=== PATIENT | male | born 1965 | race Caucasian/White ===

== ENCOUNTER 2017-07-01 08:40 | Emergency (ER) | payer BC ==
[~2017-07-01] VITALS: Ht 182.9 cm; Wt 122.5 kg
--- OUTSIDE RECORDS SUMMARY | 2017-07-01 08:46 | XMS REPORT | Continuity of Care Document ---
Demographics Preferred Language Unknown Marital Status Unknown Sabianism Affiliation Unknown Race Unknown Ethnic Group Unknown Author Author [facility] Address Unknown Phone Unavailable Allergies Active Description Code Type Severity Reaction Onset Reported/Identified Relationship to Patient Clinical Status Yes Penicillins Drug Allergy N/A N/A 06/05/2010 Medications There is no data. Problems Date Dx Coded Attending Type Code Diagnosis Diagnosed By 06/05/2010 465.9 UPPER RESPIRATORY INFECTION 09/29/2012 786.2 COUGH Procedures There is no data. Results There is no data. Encounters ACCT No. Visit Date/Time Discharge Status Pt. Type Provider Facility Loc./Unit Complaint [id number] 09/29/2012 15:45:00 Document Registration
--- OUTSIDE RECORDS SUMMARY | 2017-07-01 08:46 | XMS REPORT ---
Author Author KAREEN ANSARI Organization [employer] Address Unknown Phone Unavailable Care Team Providers Care Monorail Crane Operator Name Role Phone KAREEN ANSARI CP Unavailable Allergies No Known Allergies Problems Problem Type Condition Code Onset Dates Condition Status Problem Essential hypertension I10 Active Problem Cough 786.2 Active Problem Hypertension, benign I10 Active Medications Medication Code System Code Instructions Start Date End Date Status Dosage Clonidine HCl [facility] [address]-29 0.2 MG Orally twice daily Dec 15, 2015 1 tablet Lisinopril-Hydrochlorothiazide [facility] [address]-24 20-25 MG Orally Once a day Dec 18, 2015 1 tablet Results No Known Results Summary Purpose [employer] Submission
--- OUTSIDE RECORDS SUMMARY | 2017-07-01 08:46 | XMS REPORT ---
Author Author YVONNE WILL Organization [facility] Address [address] [place] [address] Care Team Providers Care Pediatric Clinical Nurse Specialist Name Role Phone TIFFANY WILLISTIN Unavailable PROBLEMS Type Condition ICD9-CM Code LUD47-DJ Code Onset Dates Condition Status SNOMED Code Problem Cough 786.2 Active 66042468 Assessment Bronchitis J40 Nov, Active 26305832 Assessment Hypertensive crisis I10 Nov, Active 642771702 Assessment Essential hypertension I10 Nov, Active 72562653 ALLERGIES Substance Reaction Event Type Date Status Penicillin G Sodium anaphylaxis Drug Allergy Nov, Active SOCIAL HISTORY No smoking Hx information available PLAN OF CARE VITAL SIGNS Height 72 in 2015-12-15 Weight 284.4 lbs 2015-12-15 Heart Rate 92 bpm 2015-12-15 Respiratory Rate 22 2015-12-15 Oximetry 96 % 2015-12-15 BMI 38.57 kg/m2 2015-12-15 Blood pressure systolic 238 mmHg 2015-12-15 Blood pressure diastolic 142 mmHg 2015-12-15 MEDICATIONS Medication Instructions Dosage Frequency Start Date End Date Duration Status Azithromycin 250 MG Orally Once a day 2 tablets on the first day, then 1 tablet daily for 4 days 24h Nov, Nov, 5 day(s) Active Clonidine HCl 0.2 MG Orally twice daily 1 tablet Nov, 30 day( s) Active NyQuil Active Mucinex D 60-600 mg take 1 tablet by Oral route 2 times per day for 10 day( s) PRN Sep, Active RESULTS Name Result Date Reference Range URINE DRUG SCREEN (IN HOUSE) 2015-12-15 Lot # [id number] Exp date Control + COCAINE negative AMPH negative MTD negative THC negative OPIATE Positive BENZO negative PCP negative BAR negative OXY negative MAMP negative TCA negative MDMA negative UA LONG DIP (IN HOUSE) 2015-12-15 Lot # [id number] Exp date 2016-05 Clarity clear Color yellow Odor none GLU negative GAGE negative KET negative SG 1.020 BLO trace-lysed pH 6.0 Protein negative URO 0.2 NIT negative ARIELLA negative Lot # [id number] Exp date 2017-01 CBC 2015-12-15 WBC 7.1 3.4-10.8 RBC 6.15 4.14-5.80 Hemoglobin 18.3 12.6-17.7 Hematocrit 52.5 37.5-51.0 MCV 85 79-97 MCH 29.8 26.6-33.0 MCHC 34.9 31.5-35.7 RDW 13.8 12.3-15.4 Platelets 202 150-379 Neutrophils 57 Lymphs 30 Monocytes 7 Eos 6 Basos 0 Immature Cells Neutrophils (Absolute) 4.0 1.4-7.0 Lymphs (Absolute) 2.2 0.7-3.1 Monocytes(Absolute) 0.5 0.1-0.9 Eos (Absolute) 0.4 0.0-0.4 Baso (Absolute) 0.0 0.0-0.2 Immature Granulocytes 0 Immature Grans (Abs) 0.0 0.0-0.1 NRBC Hematology Comments: CMP 2015-12-15 Glucose, Serum 112 65-99 BUN 11 6-24 Creatinine, Serum 1.19 0.76-1.27 eGFR If NonAfricn Am 72 >59 eGFR If Africn Am 83 >59 BUN/Creatinine Ratio 9 9-20 Sodium, Serum 138 134-144 Potassium, Serum 4.9 3.5-5.2 Chloride, Serum 95 97-108 Carbon Dioxide, Total 24 18-29 Calcium, Serum 9.8 8.7-10.2 Protein, Total, Serum 7.9 6.0-8.5 Albumin, Serum 4.5 3.5-5.5 Globulin, Total 3.4 1.5-4.5 A/G Ratio 1.3 1.1-2.5 Bilirubin, Total 0.6 0.0-1.2 Alkaline Phosphatase, S 69 39-117 AST (SGOT) 35 0-40 ALT (SGPT) 47 0-44 PROCEDURES Procedure Date Ordered Related Diagnosis Body Site Office Visit, Est Pt., Level 3 Dec 15, 2015 ELECTROCARDIOGRAM, TRACING Dec 15, 2015 EKG, TRACING (IN-HOUSE) 2015-12-15 N/A ALBUTEROL UNIT DOSE FORM INHALED 2015-12-15 N/A ALBUTEROL INHAL UNIT DOSE 1 MG Dec 15, 2015 DRUG SCREEN NON TLC DEVICES Dec 15, 2015 VENIPUNCT, ROUTINE* Dec 15, 2015 COMPLETE CBC W/AUTO DIFF WBC Dec 15, 2015 MEASURE BLOOD OXYGEN LEVEL Dec 15, 2015 URINALYSIS, AUTO, W/O SCOPE Dec 15, 2015 COMPREHEN METABOLIC PANEL Dec 15, 2015 IMMUNIZATIONS No Known Immunizations
--- OUTSIDE RECORDS SUMMARY | 2017-07-01 08:46 | XMS REPORT ---
Author NIYAH Chapman Organization [employer] Address Unknown Phone Unavailable Care Team Providers Care Pegger Dobby Looms Name Role Phone NIYAH MALIK CP Unavailable Allergies, Adverse Reactions, Alerts Substance Reaction Event Type Penicillin G Sodium anaphylaxis Drug Allergy Problems Problem Type Condition Code Onset Dates Condition Status Problem Cough 786.2 Active Assessment Essential hypertension I10 Active Problem Essential hypertension I10 Active Medications Medication Code System Code Instructions Start Date End Date Status Dosage Clonidine HCl [facility] [address]-81 0.2 MG Orally twice daily Dec 15, 2015 1 tablet Azithromycin [facility] [address]-68 250 MG Orally Once a day Dec 15, 2015 Dec 20, 2015 2 tablets on the first day, then 1 tablet daily for 4 days Lisinopril-Hydrochlorothiazide [facility] [address]-37 20-12.5 MG Orally Once a day Dec 18, 2015 1 tablet Procedures Procedure Coding System Code Date Office Visit, Est Pt., Level 4 CPT-4 75276 Dec 18, 2015 Vital Signs Date/Time: Dec 18, 2015 Cardiac Monitoring Heart Rate 76 bpm Weight 286.4 lbs Height 72 in BMI 38.84 Index Blood Pressure Diastolic 118 mmHg Blood Pressure Systolic 170 mmHg Results No Known Results Summary Purpose [employer]ClinicalWorks Submission
--- OUTSIDE RECORDS SUMMARY | 2017-07-01 08:46 | XMS REPORT ---
Author Author KAREEN ANSARI Organization [employer] Address Unknown Phone Unavailable Care Team Providers Care Furniture Installer Name Role Phone KAREEN ANSARI CP Unavailable Allergies, Adverse Reactions, Alerts Substance Reaction Event Type Penicillin V Potassium Info Not Available Drug Allergy Problems Problem Type Condition Code Onset Dates Condition Status Problem Cough 786.2 Active Assessment Hypertension, benign I10 Active Problem Hypertension, benign I10 Active Medications Medication Code System Code Instructions Start Date End Date Status Dosage Lisinopril-Hydrochlorothiazide [facility] [address]-19 20-25 MG Orally Once a day Dec 18, 2015 1 tablet Clonidine HCl [facility] [address]-28 0.2 MG Orally twice daily Dec 15, 2015 1 tablet Procedures Procedure Coding System Code Date Office Visit, Est Pt., Level 3 CPT-4 54832 Jan 04, 2016 Vital Signs Date/Time: Jan 04, 2016 Cardiac Monitoring Heart Rate 82 bpm Weight 282.6 lbs Height 72 in BMI 38.32 Index Blood Pressure Diastolic 106 mmHg Blood Pressure Systolic 160 mmHg Results No Known Results Summary Purpose [employer]ClinicalWorks Submission
[2017-07-01] MEDS ORDERED: NS IV 1000 ML 1,000 ML IV ONE (08:51)
[2017-07-01 09:13] LABS: BASOPHILS % (AUTO) 0 % (0-10); EOSINOPHILS # (AUTO) 0.7 10^3/uL (0.0-0.3); EOSINOPHILS % (AUTO) 8 % (0-10); HEMATOCRIT 45 % (40-54); HEMOGLOBIN 16.3 G/DL (13.3-17.7); LYMPHOCYTES % (AUTO) 22 % (12-44); MEAN CORPUSCULAR HEMOGLOBIN 31 PG (25-34); MEAN CORPUSCULAR HGB CONC 37 G/DL (32-36); MEAN CORPUSCULAR VOLUME 83 FL (80-99); MEAN PLATELET VOLUME 9.5 FL (7.4-10.4); MONOCYTES # (AUTO) 0.5 X 10^3 (0.0-1.0); MONOCYTES % (AUTO) 5 % (0-12); NEUTROPHILS # (AUTO) 5.7 X 10^3 (1.8-7.8); NEUTROPHILS % (AUTO) 64 % (42-75); PLATELET COUNT 244 10^3/uL (130-400); RED BLOOD COUNT 5.35 10^6/uL (4.35-5.85); RED CELL DISTRIBUTION WIDTH 13.1 % (10.0-14.5); WHITE BLOOD COUNT 8.9 10^3/uL (4.3-11.0)
[2017-07-01 09:30] LABS: ALANINE AMINOTRANSFERASE 44 U/L (0-55); ALBUMIN 4.3 GM/DL (3.2-4.5); ALKALINE PHOSPHATASE 68 U/L (40-136); BILIRUBIN,TOTAL 0.7 MG/DL (0.1-1.0); BUN/CREATININE RATIO 12; CALCIUM 9.9 MG/DL (8.5-10.1); CARBON DIOXIDE 20 MMOL/L (21-32); CHLORIDE 102 MMOL/L (98-107); CREATININE SERUM 1.05 MG/DL (0.60-1.30); GFR ESTIMATED > 60; GLUCOSE 306 MG/DL (70-105); POTASSIUM 4.4 MMOL/L (3.6-5.0); SODIUM 135 MMOL/L (135-145); TOTAL PROTEIN 7.8 GM/DL (6.4-8.2)
[2017-07-01 09:38] LABS: BILIRUBIN,URINE NEGATIVE (NEGATIVE); CLARITY,URINE CLEAR; COLOR,URINE YELLOW; GLUCOSE, URINE (UA) 4+ (NEGATIVE); KETONES,URINE NEGATIVE (NEGATIVE); LEUKOCYTE ESTERASE ,URINE NEGATIVE (NEGATIVE); NITRITE,URINE NEGATIVE (NEGATIVE); PH,URINE 5 (5-9); PROTEIN,URINE 1+ (NEGATIVE); UROBILINOGEN,URINE NORMAL (NORMAL)
[2017-07-01 09:48] LABS: BACTERIA,URINE NEGATIVE /HPF; GRANULAR CASTS,URINE RARE /LPF; RBC,URINE RARE /HPF; SQUAMOUS EPITHELIAL CELL,UR RARE /HPF
--- NOTE | 2017-07-01 10:04 | ED Abdominal Pain ---
General Chief Complaint: Abdominal/GI Problems Stated Complaint: BACK PAIN RIGHT SIDE PAIN Nursing Triage Note: c/o right lower abd pain x 1.5 weeks. Pain increased to right flank this morning. Denies urinary symptoms/fever/chills. Sepsis Screen: No Definite Risk Source of Information: Patient Exam Limitations: No Limitations History of Present Illness Date Seen by Provider: Jul 01, 2017 Time Seen by Provider: 09:30 Initial Comments Here with report of right flank pain over the last week and a half. Started in the right lower quadrant and has moved to the right flank. Denies diarrhea or dysuria. Has had some vomiting but no blood in the vomit, stool or urine. Denies fever and chills. Denies weakness. Blood pressure is elevated and has history of elevated blood pressure. Timing/Duration: 1 Week Severity/Quality: Moderate Location: RLQ Radiation: Flank Activities at Onset: None Modifying Factors: Worsens With Movement, Improves With Resting Associated Symptoms: Back Pain, No Chest Pain, No Fever/Chills, No Nausea/ Vomiting, No Shortness of Air, No Weakness Allergies and Home Medications Allergies Coded Allergies: Penicillins (Unverified Allergy, Mild, 05/03/09) Home Medications Lisinopril/Hydrochlorothiazide 1 Each Tablet, 1 EACH PO DAILY, (Reported) Patient Home Medication List Home Medication List Reviewed: Yes Review of Systems Constitutional: see HPI, No chills, No fever EENTM: No Symptoms Reported Respiratory: No Symptoms Reported Cardiovascular: No Symptoms Reported Gastrointestinal: See HPI, Abdominal Pain, Denies Nausea, Denies Vomiting Genitourinary: No Symptoms Reported Musculoskeletal: back pain, No neck pain Skin: no symptoms reported Psychiatric/Neurological: No Symptoms Reported All Other Systems Reviewed Negative Unless Noted: Yes Past Nzsxaho-Fknpre-Wqalxm Hx Patient Social History Alcohol Use: Occasionally Uses Alcohol Beverage of Choice: Beer Recreational Drug Use: No Smoking Status: Current Everyday Smoker Recent Foreign Travel: No Contact w/Someone Who Travel: No Recent Infectious Disease Expo: No Recent Hopitalizations: No Surgeries History of Surgeries: Yes (gallbladder, knee ) Respiratory History of Respiratory Disorde: No Cardiovascular History of Cardiac Disorders: Yes Neurological History of Neurological Disord: Yes Gastrointestinal History of Gastrointestinal Di: No Endocrine History of Endocrine Disorders: No Psychosocial History of Psychiatric Problem: No Blood Transfusions History of Blood Disorders: No Reviewed Nursing Assessment Reviewed/Agree w Nursing PMH: Yes Family Medical History Significant Family History: No Pertinent Family Hx Physical Exam Vital Signs VS - Last 72 Hours, by Label 07/01/17 08:54 Temp 97.4 Pulse 101 Resp 20 B/P (MAP) 172/139 (150) Pulse Ox 98 Capillary Refill : Less Than 3 Seconds General Appearance: WD/WN, no apparent distress HEENT: PERRL/EOMI, pharynx normal Neck: full range of motion, supple Respiratory: lungs clear, normal breath sounds Cardiovascular: regular rate, rhythm, no murmur Gastrointestinal: normal bowel sounds, non tender, soft, no organomegaly, no pulsatile mass Extremities: non-tender, normal inspection Back: no vertebral tenderness, CVA tenderness (R), No CVA tenderness (L) Neurologic/Psychiatric: alert, oriented x 3 Skin: normal color, warm/dry Progress/Results/Core Measures Results/Orders Lab Results Laboratory Tests Test 07/01/17 09:00 07/01/17 09:30 Range/Units White Blood Count 8.9 4.3-11.0 10^3/uL Red Blood Count 5.35 4.35-5.85 10^6/uL Hemoglobin 16.3 13.3-17.7 G/DL Hematocrit 45 40-54 % Mean Corpuscular Volume 83 80-99 FL Mean Corpuscular Hemoglobin 31 25-34 PG Mean Corpuscular Hemoglobin Concent 37 H 32-36 G/DL Red Cell Distribution Width 13.1 10.0-14.5 % Platelet Count 244 130-400 10^3/uL Mean Platelet Volume 9.5 7.4-10.4 FL Neutrophils (%) (Auto) 64 42-75 % Lymphocytes (%) (Auto) 22 12-44 % Monocytes (%) (Auto) 5 0-12 % Eosinophils (%) (Auto) 8 0-10 % Basophils (%) (Auto) 0 0-10 % Neutrophils # (Auto) 5.7 1.8-7.8 X 10^3 Lymphocytes # (Auto) 2.0 1.0-4.0 X 10^3 Monocytes # (Auto) 0.5 0.0-1.0 X 10^3 Eosinophils # (Auto) 0.7 H 0.0-0.3 10^3/uL Basophils # (Auto) 0.0 0.0-0.1 10^3/uL Sodium Level 135 135-145 MMOL/L Potassium Level 4.4 3.6-5.0 MMOL/L Chloride Level 102 98-107 MMOL/L Carbon Dioxide Level 20 L 21-32 MMOL/L Anion Gap 13 5-14 MMOL/L Blood Urea Nitrogen 13 7-18 MG/DL Creatinine 1.05 0.60-1.30 MG/DL Estimat Glomerular Filtration Rate > 60 BUN/Creatinine Ratio 12 Glucose Level 306 H 70-105 MG/DL Calcium Level 9.9 8.5-10.1 MG/DL Total Bilirubin 0.7 0.1-1.0 MG/DL Aspartate Amino Transf (AST/SGOT) 21 5-34 U/L Alanine Aminotransferase (ALT/SGPT) 44 0-55 U/L Alkaline Phosphatase 68 40-136 U/L C-Reactive Protein High Sensitivity 1.28 H 0.00-0.50 MG/DL Total Protein 7.8 6.4-8.2 GM/DL Albumin 4.3 3.2-4.5 GM/DL Urine Color YELLOW Urine Clarity CLEAR Urine pH 5 5-9 Urine Specific [place] 1.020 1.016-1.022 Urine Protein 1+ H NEGATIVE Urine Glucose (UA) 4+ H NEGATIVE Urine Ketones NEGATIVE NEGATIVE Urine Nitrite NEGATIVE NEGATIVE Urine Bilirubin NEGATIVE NEGATIVE Urine Urobilinogen NORMAL NORMAL MG/DL Urine Leukocyte Esterase NEGATIVE NEGATIVE Urine RBC (Auto) 1+ H NEGATIVE Urine RBC RARE /HPF Urine WBC NONE /HPF Urine Squamous Epithelial Cells RARE /HPF Urine Crystals NONE /LPF Urine Bacteria NEGATIVE /HPF Urine Casts PRESENT /LPF Urine Granular Casts RARE /LPF Urine Mucus NEGATIVE /LPF Urine Culture Indicated NO My Orders Orders - AMRIT MERRITT MD Cbc With Automated Diff (07/01/17 08:51) Comprehensive Metabolic Panel (07/01/17 08:51) Hs C Reactive Protein (07/01/17 08:51) Ua Culture If Indicated (07/01/17 08:51) Saline Lock/Iv-Start (07/01/17 08:51) Ns Iv 1000 Ml (Sodium Chloride 0.9%) (07/01/17 08:51) Ct Abdomen/Pelvis W (07/01/17 09:58) Iohexol Injection (Omnipaque 350 Mg/Ml 1 (07/01/17 10:15) Ns (Ivpb) (Sodium Chloride 0.9%) (07/01/17 10:15) Metoprolol Succinate (Xl) Tab (Toprol Xl (07/01/17 11:45) Medications Given in ED Current Medications Medications Dose Ordered Sig/Tika Route Start Time Stop Time Status Last Admin Dose Admin Iohexol 100 ml ONCE ONCE IV 07/01/17 10:15 07/01/17 10:16 DC 07/01/17 10:29 100 ML Sodium Chloride 250 ml ONCE ONCE IV 07/01/17 10:15 07/01/17 10:16 DC 07/01/17 10:29 80 ML Sodium Chloride 1,000 ml @ 0 mls/hr Q0M ONCE IV 07/01/17 08:51 07/01/17 08:53 DC 07/01/17 09:42 1,000 MLS/HR Vital Signs/I&O Vital Sign - Last 12Hours 07/01/17 08:54 Temp 97.4 Pulse 101 Resp 20 B/P (MAP) 172/139 (150) Pulse Ox 98 Blood Pressure Mean: 150 Progress Note : Progress Note Seen and evaluated. IV, labs, UA, normal saline [address] abdomen and pelvis ordered with contrast. Patient declined pain medicine. Monitor patient. 1130: Labs and CT reviewed. Patient appears to have diabetes with blood sugar just over 300. Toprol XL 50 mg by mouth given for hypertension. Patient has asked about referral to local physician as he typically follows in the clinic but would like to have a more stable doctor. I will attempt to contact Dr. Kevin Malik about options for his clinic. He understands importance of following up for further evaluation and initiation of treatment for his diabetes. Discharged home with return precautions. Patient and family verbalize understanding instructions and agreement with plan. 1140: I discussed the case with Dr. Malik and he will see the patient in the clinic tomorrow at 4 p.m. He will initiate prescriptions as needed. Toradol 30 mg IV for the low back pain given now. Discharged home with return precautions. Patient and family verbalize understanding instructions and agreement with plan. Diagnostic Imaging Diagonstic Imaging: CT Plain Films/CT/US/NM/MRI: abdomen, pelvis Comments VIA [facility]. [place], [place] NAME: MARY DOAN [facility] REC#: [id number] PT STATUS: REG ER : 1965 PHYSICIAN: AMRIT MERRITT MD ADMIT DATE: 07/01/17/ER Draft Date of Exam:07/01/17 CT ABDOMEN/PELVIS W PROCEDURE: CT abdomen and pelvis with contrast. TECHNIQUE: Multiple contiguous axial images were obtained through the abdomen and pelvis after administration of intravenous contrast. INDICATION: Pain. COMPARISON: 07/25/2010. FINDINGS: There is a calcified granuloma at the left lung base. The lung bases are otherwise clear. There is fairly prominent diffuse hepatic steatosis. No focal hepatic mass is seen. The portal vein enhances normally. The gallbladder is absent. There is no biliary dilatation. The pancreas appears unremarkable. There are scattered calcified granulomas in the spleen which is otherwise unremarkable. The adrenal glands appear normal. The kidneys, ureters and bladder appear unremarkable. No obstructive change is seen. The appendix appears normal. There is no focal inflammatory process or evidence of bowel obstruction. There is some hazy stranding with mild prominent lymph nodes seen in the central mesentery possibly related to mesenteric panniculitis. No abnormally enlarged lymph nodes are seen. There is no free fluid or free air. There is a small fat-containing umbilical hernia. The abdominal aorta appears normal in caliber with mild atherosclerosis noted. There are mild degenerative changes in the spine. IMPRESSION: 1. There is mild hazy soft tissue stranding in the central mesentery with a few prominent lymph nodes through this region. 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 2. Diffuse hepatic steatosis. 3. Small fat-containing umbilical hernia. 4. No acute abnormality is suspected in the abdomen and pelvis. Dictated on workstation # [id number] Dict: 07/01/17 1043 Trans: 07/01/17 1052 [facility] [id number] Interpreted by: PRICILLA SOLOMON DO Electronically signed by: Departure Impression Impression: Primary Impression: Right flank pain Additional Impression: Mesenteric adenitis Disposition: 01 HOME, SELF-CARE Condition: Improved Departure-Patient Inst. Decision time for Depature: 11:52 Referrals: NO,LOCAL PHYSICIAN (PCP) Primary Care Physician KEVIN MALIK MD Patient Instructions: Acute Abdomen (Belly Pain), Adult (DC), Low Back Pain ( DC) Add. Discharge Instructions: All discharge instructions reviewed with patient and/or family. Voiced understanding. You may take ibuprofen 600 mg every 8 hours as needed for pain. You may take Tylenol/acetaminophen 1000 mg every 8 hours as needed for pain. Drink plenty of fluids. You should avoid sugars in your diet as her blood sugar is elevated. Follow-up with Dr. Kevin Malik tomorrow at his office at 4 p.m. Return for worse pain, fever, vomiting, weakness, breathing problems or other concerns as needed. Copy Copies To 1: KEVIN MALIK MD, TIMOTHY D MD Jul 01, 2017 10:04
[2017-07-01] MEDS ORDERED: IOHEXOL 350 MG/ML 100 ML (OMNIPAQUE 350) VIAL IV ONE (10:15)
[2017-07-01] MEDS ORDERED: NS 250 ML (IVPB) BAG IV ONE (10:15)
--- NOTE | 2017-07-01 10:53 | Diagnostic Imaging Report ---
PROCEDURE: CT abdomen and pelvis with contrast. TECHNIQUE: Multiple contiguous axial images were obtained through the abdomen and pelvis after administration of intravenous contrast. INDICATION: Pain. COMPARISON: 07/25/2010. FINDINGS: There is a calcified granuloma at the left lung base. The lung bases are otherwise clear. There is fairly prominent diffuse hepatic steatosis. No focal hepatic mass is seen. The portal vein enhances normally. The gallbladder is absent. There is no biliary dilatation. The pancreas appears unremarkable. There are scattered calcified granulomas in the spleen which is otherwise unremarkable. The adrenal glands appear normal. The kidneys, ureters and bladder appear unremarkable. No obstructive change is seen. The appendix appears normal. There is no focal inflammatory process or evidence of bowel obstruction. There is some hazy stranding with mild prominent lymph nodes seen in the central mesentery possibly related to mesenteric panniculitis. No abnormally enlarged lymph nodes are seen. There is no free fluid or free air. There is a small fat-containing umbilical hernia. The abdominal aorta appears normal in caliber with mild atherosclerosis noted. There are mild degenerative changes in the spine. IMPRESSION: 1. There is mild hazy soft tissue stranding in the central mesentery with a few prominent lymph nodes through this region. 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 2. Diffuse hepatic steatosis. 3. Small fat-containing umbilical hernia. 4. No acute abnormality is suspected in the abdomen and pelvis. Dictated by: Dictated on workstation # [id number]
[2017-07-01] MEDS ORDERED: LISI1TAB8 PO (10:57)
[2017-07-01] MEDS ORDERED: meTOproloL SUCCINATE 50 MG (TOPROL XL) TAB PO SCH (11:45)
[2017-07-01] MEDS ORDERED: KETOROLAC 30 MG/ML VIAL IVP STA (11:50)
[2017-07-01 16:01] VITALS: BP 162/100
== END 2017-07-01 12:10 | disposition home or self-care (01) ==
LOC: EDUNIT# 08:40 → ER 08:42
DX: I88.0 Nonspecific mesenteric lymphadenitis (principal); F17.200 Nicotine dependence, unspecified, uncomplicated; Z88.0 Allergy status to penicillin
CPT/HCPCS: 36415; 74177; 80053; 81000; 85025; 86141; 96361; 96374